=== PATIENT | female | born 1960 | race Two or more races ===

== ENCOUNTER 2016-09-29 18:57 | Inpatient (IN) | payer OTHER ==
[~2016-09-29] VITALS: Ht 162.6 cm; Wt 61.0 kg
--- NOTE | 2016-09-29 19:10 | NUR ---
PT BIB PA WITH FROM [facility] FOR FAILURE TO THRIVE. PT HAS STOPPED EATING A FEW DAYS AGO. PT APPEARS AA&O, BUT IS NOT RESPONDING TO QUESTIONS, PER EMS. PT IS ON MONITOR AND CONTINUOUS PULSE OX.
--- NOTE | 2016-09-29 19:30 | NUR ---
20G IV STARTED LAC. BLOOD CULTURES X2 AND LABS DRAWN.
[2016-09-29 19:42] LABS: ABG BASE EXCESS 6.2 mmol/L; ABG OXYGEN SATURATION 96.7 % (92.0-98.5); ABG PCO2 37.1 mmHg (35.0-45.0); ABG PH 7.517 (7.350-7.450); ABG PO2 90.3 mmHg (75.0-100.0); AaDO2 224.5 mmHg; COHb 1.2 % (0.5-1.5); MetHb 0.5 % (0.0-1.5); O2Hb 95.1 % (94.0-97.0); SITE, ABG Right Radial; VENT MODE, BG 5L N/C
--- NOTE | 2016-09-29 19:46 | NUR ---
XRAY IN PROGRESS AT THE BEDSIDE.
[2016-09-29 19:48] LABS: BASOPHILS # (AUTO) 0.5 /CMM (0.0-0.2); BASOPHILS % (AUTO) 4.6 % (0.0-2.0); EOSINOPHILS % (AUTO) 0.1 % (0.0-6.0); HEMATOCRIT 29 % (33-45); HEMOGLOBIN 10.2 g/dL (11.5-14.8); LYMPHOCYTES # (AUTO) 1.6 /CMM (0.8-4.8); MEAN CORPUSCULAR HEMOGLOBIN 32 PG (26.0-33.0); MEAN CORPUSCULAR HGB CONC 35 g/dl (31.0-36.0); MEAN CORPUSCULAR VOLUME 92 fL (82-100); MONOCYTES # (AUTO) 0.7 /CMM (0.1-1.30); MONOCYTES % (AUTO) 6.8 % (2.0-12.0); NEUTROPHILS # (AUTO) 7.2 /CMM (1.8-8.9); NEUTROPHILS % (AUTO) 72.5 % (43.0-81.0); PLATELET COUNT (AUTO) 389 /CMM (150-450); RDW COEFFICIENT OF VARIATION 16.8 (11.5-15.0); RED BLOOD CELL COUNT(AUTO) 3.18 MIL/uL (4.0-5.2)
--- NOTE | 2016-09-29 19:49 | NUR ---
PT IS GOING TO CT.
--- NOTE | 2016-09-29 20:00 | NUR ---
PT RETURNED FROM CT.
[2016-09-29 20:05] LABS: INR 0.96 (0.87-1.13); PROTHROMBIN TIME 10.2 SECS (9.5-12.7)
[2016-09-29 20:09] LABS: TROPONIN I < 0.017 ng/mL (0.00-0.056)
[2016-09-29 20:10] LABS: APPEARANCE,URINE CLEAR (CLEAR); BILIRUBIN,URINE NEGATIVE (NEGATIVE); BLOOD, URINE TRACE Ery/uL (NEGATIVE); COLOR,URINE YELLOW (YELLOW); KETONES,URINE NEGATIVE (NEGATIVE); LEUKOCYTE ESTERASE ,URINE NEGATIVE (NEGATIVE); NITRITE, URINE NEGATIVE (NEGATIVE); PH,URINE 7.5 (5.0-8.0); PROTEIN,URINE TRACE mg/dl (NEGATIVE); UGLUCOSE NEGATIVE (NEGATIVE)
[2016-09-29 20:13] LABS: ALANINE AMINOTRANSFERASE 49 U/L (12-78); ASPARTATE AMINOTRANSFERASE 302 U/L (15-37); BILIRUBIN,DIRECT 0.3 mg/dL (0.0-0.2); BILIRUBIN,TOTAL 0.7 mg/dL (0.2-1.0); CARBON DIOXIDE 31 mmol/L (21-32); CHLORIDE 94 mmol/L (98-107); GLUCOSE 101 mg/dL (74-106); POTASSIUM 4.2 mmol/L (3.5-5.1); SODIUM SERUM 132 mmol/L (136-145); TOTAL PROTEIN, SERUM 6.8 g/dL (6.4-8.2); UREA NITROGEN, BLOOD 28 mg/dL (7-18)
[2016-09-29 20:21] LABS: ALKALINE PHOSPHATASE 1788 U/L (46-116); CALCIUM, SERUM 17.5 mg/dL (8.5-10.1)
[2016-09-29] MEDS ORDERED: IV NS 0.9% 1,000 ML BAG IV ONE (20:30)
[2016-09-29] MEDS ORDERED: MEROPENEM 500 MG in IV NS 0.9% 50 ML IV ONE (20:30)
[2016-09-29] MEDS ORDERED: VANCOMYCIN 1 GM in IV D5W 250 ML IV ONE (20:30)
[2016-09-29 20:42] LABS: BACTERIA,URINE Few /HPF (None Seen); RBC,URINE 0-2 /HPF (0-2); SQUAMOUS EPITHELIAL CELL,UR Few /HPF (None Seen); WBC,URINE 0-2 /HPF (0-3)
[2016-09-29] MEDS ORDERED: IV SET PRIMARY 1 EA INFUS.SET MC ONE ×2 (20:43→21:00)
[2016-09-29] MEDS ORDERED: IV NS 0.9% 2,000 ML ONE (20:43)
--- NOTE | 2016-09-29 20:55 | NUR ---
DR FELIX ON THE PHONE WITH RAPHAEL العلي.
[2016-09-29] MEDS ORDERED: PAMIDRONATE 60 MG in IV NS 0.9% 500 ML IV ONE (21:00)
[2016-09-29] MEDS ORDERED: IV SET PRIMARY PUMP SET 1 EA INFUS.SET MC ONE (21:00)
--- NOTE | 2016-09-29 21:03 | NUR ---
ASSIGNED BED 103
--- NOTE | 2016-09-29 21:10 | NUR ---
DR. FELIX SPOKE TO FAMILY RE: PT
[2016-09-29 22:00] VITALS: BP 161/87
[2016-09-29 22:15] VITALS: BP 152/90
--- NOTE | 2016-09-29 22:30 | NUR ---
MIS MANAGER NOTES RECEIVED PT FROM ER. DX OF METASTATIC BREAST CANCER AND HYPERCALCEMIA. ON O2 VIA NC AT 4 LPM, MIRA WELL. TELE READS SR AT 88 BPM. IV SITES AT LEFT AC AND RIGHT WRIST. HOLLOWAY CATH IN PLACE. SURGICAL INCISION AT RIGHT SHOULDER AND UPPER ARM WITH RUSLAN AND DRESSING INTACT. ABNORMAL GROWTHS PRESENT AT RIGHT BREAST. FAMILY AT BEDSIDE. HOB ELEVATED. PER PT'S BROTHER REQUEST, CODE STATUS DNR/DNI. DR العلي MADE AWARE. CODE STATUS UPDATED.
[2016-09-29 23:00] VITALS: BP 141/87
[2016-09-30] VITALS (27 sets, daily range): BP systolic 121–179; BP diastolic 68–94
[2016-09-30] MEDS ORDERED: Z GUARD REMEDY 2 OZ OINT TP PRN
[2016-09-30] MEDS ORDERED: ACETAMINOPHEN 325 MG TABLET PO PRN
[2016-09-30] MEDS ORDERED: MORPHINE SULFATE INJ 2 MG/ML DISP.SYRIN IV PRN
[2016-09-30] MEDS ORDERED: ENOXAPARIN SODIUM 40 MG/0.4 ML DISP.SYRIN SQ SCH
[2016-09-30] MEDS ORDERED: ONDANSETRON HCL/PF 4 MG/2 ML VIAL IVP PRN
[2016-09-30] MEDS ORDERED: IV NS 0.9% 3,000 ML ONE (00:06)
[2016-09-30] MEDS ORDERED: IV SET PRIMARY PUMP SET 1 EA INFUS.SET MC ONE (00:06)
[2016-09-30] MEDS: IV NS 0.9% 1,000 ML IV PRN ×7 (00:28→22:59)
[2016-09-30] MEDS ORDERED: ENOXAPARIN SODIUM 40 MG/0.4 ML DISP.SYRIN SQ ONE (00:44)
[2016-09-30] MEDS ORDERED: DEXAMETHASONE SOD PHOSPHATE 4 MG/ML VIAL ONE (00:44)
[2016-09-30] MEDS ORDERED: DEXAMETHASONE SOD PHOSPHATE 10 MG/ML VIAL ONE (00:48)
[2016-09-30] MEDS: DEXAMETHASONE SOD PHOSPHATE 10 MG/ML VIAL IV SCH ×4 (00:53→17:09)
[2016-09-30 04:15] LABS: BASOPHILS % (AUTO) 0.1 % (0.0-2.0); EOSINOPHILS % (AUTO) 0.2 % (0.0-6.0); HEMATOCRIT 26 % (33-45); HEMOGLOBIN 8.8 g/dL (11.5-14.8); LYMPHOCYTES # (AUTO) 0.8 /CMM (0.8-4.8); LYMPHOCYTES % (AUTO) 8.2 % (20.0-44.0); MEAN CORPUSCULAR HEMOGLOBIN 28 PG (26.0-33.0); MEAN CORPUSCULAR HGB CONC 34 g/dl (31.0-36.0); MEAN CORPUSCULAR VOLUME 83 fL (82-100); MONOCYTES # (AUTO) 0.1 /CMM (0.1-1.30); MONOCYTES % (AUTO) 0.7 % (2.0-12.0); NEUTROPHILS # (AUTO) 9.2 /CMM (1.8-8.9); NEUTROPHILS % (AUTO) 90.8 % (43.0-81.0); PLATELET COUNT (AUTO) 307 /CMM (150-450); RDW COEFFICIENT OF VARIATION 18.1 (11.5-15.0); RED BLOOD CELL COUNT(AUTO) 3.14 MIL/uL (4.0-5.2); WHITE BLOOD COUNT (AUTO) 10.1 K/uL (4.3-11.0)
[2016-09-30 04:34] LABS: ALBUMIN 1.7 g/dL (3.4-5.0); BILIRUBIN,TOTAL 0.6 mg/dL (0.2-1.0); CREATININE 0.9 mg/dL (0.6-1.3); MAGNESIUM 1.5 mg/dL (1.8-2.4); PHOSPHORUS 3.1 mg/dL (2.5-4.9); POTASSIUM 3.3 mmol/L (3.5-5.1); TOTAL PROTEIN, SERUM 5.8 g/dL (6.4-8.2)
[2016-09-30 04:46] LABS: THYROID STIMULATING HORMONE 0.986 uIU/mL (0.358-3.74)
[2016-09-30 05:34] LABS: CALCIUM, SERUM 14.8 mg/dL (8.5-10.1)
[2016-09-30 06:15] LABS: GAMMA GLUTAMYL TRANSFERASE 2249 U/L (5-85)
[2016-09-30 06:43] LABS: BAND % (MANUAL) 8 % (0.0-5.0); EOSINOPHILS % (MANUAL) 2 % (0-4); LYMPHOCYTES % (MANUAL) 8 % (16-48); MONOCYTES % (MANUAL) 4 % (0-11.0); NEUTROPHILS % (MANUAL) 78 (42-76)
[2016-09-30] MEDS: PANTOPRAZOLE 40 MG TABLET.DR PO SCH (07:30)
--- NOTE | 2016-09-30 08:00 | NUR ---
MACHINE SPREADER NOTE: RECEIVED PATIENT IN BED. ALERT TO SELF WITH PERIODS OF CONFUSION, FAROESE SPEAKING ONLY. ON 4L 02 VIA NC NO DISTRESS NOTED SINUS TACHY ON TELE MONITOR. PATIENT NOTED WITH HOLLOWAY CATHETER DRAINING CLEAR YELLOW URINE TO GRAVITY. LAC 20G AND RW 20G PATENT AND INTACT. PATIENT S/P 4L BOLUS BY EMERGENCY PHYSICIAN RN. CURRENTLY ON MAINTENANCE FLUID OF NS AT 200ML.HR FOR CALCIUM OF 14.8. PATIENT NOTED WITH RIGHT SHOULDER RUSLAN S/P SURGERY AT [facility]. PATIENT TURNED AND REPOSITIONED AND EXTREMITIES OFFLOADED AND SKIN CARE RENDERED. PATIENT KEPT CLEAN AND DRY. SAFETY MAINTAINED. CALL LIGHT WITHIN REACH. ONGOING MONITORING. Addendum: 09/30/16 at 1652 by BYRON VILLANUEVA RN PATIENT NOTED WITH BILATERAL SOFT WRIST RESTRAINTS, ATTEMPTING TO PULL IV LINES
[2016-09-30] MEDS ORDERED: IV NS 0.9% 1,000 ML ONE (08:04)
[2016-09-30] MEDS ORDERED: CRAN3875 PO (08:53)
[2016-09-30] MEDS ORDERED: ANAS1TAB8 PO (08:53)
[2016-09-30] MEDS ORDERED: OXYC-128 PO (08:53)
[2016-09-30] MEDS ORDERED: POLY119P2 PO (08:53)
[2016-09-30] MEDS ORDERED: MAGN400O6 PO (08:53)
[2016-09-30] MEDS ORDERED: BISA10SU8 RC (08:53)
[2016-09-30] MEDS ORDERED: BISA-79 PO (08:53)
[2016-09-30] MEDS ORDERED: METO25TA6 PO (08:53)
[2016-09-30] MEDS ORDERED: AMIN30LI2 PO (08:53)
[2016-09-30] MEDS ORDERED: ACET-868 PO (08:53)
[2016-09-30] MEDS ORDERED: NA P133E RC (08:53)
[2016-09-30] MEDS ORDERED: CRAN425C PO (08:53)
[2016-09-30] MEDS ORDERED: DOCU-170 PO (08:53)
[2016-09-30] MEDS ORDERED: ONDA4TAB5 PO (08:53)
[2016-09-30] MEDS ORDERED: PAMIDRONATE 90 MG in IV NS 0.9% 500 ML IV SCH (09:00)
--- NOTE | 2016-09-30 10:00 | NUR ---
MACHINE STRIPPER CUTTER NOTE: DR. MOREIRA AT BEDSIDE RECEIVED ORDER TO OBTAIN RECORDS FROM [facility]. CALL MADE TO PATIENTS FAMILY CONTACT AND WILL OBTAIN CONSENT WHEN PATIENT FAMILY ARRIVES TO BEDSIDE THIS EVENING. PATIENT STABLE, VS NOTED WITH ELEVATED HR AND BP. MD AWARE. ONGOING MONITORING
[2016-09-30] MEDS: ANASTROZOLE 1 MG TABLET PO SCH (10:55)
[2016-09-30] MEDS: Magnesium 1GM/D5W 100ML PREMIX 100 ML IV SCH ×2 (11:35→12:49)
[2016-09-30] MEDS: POTASSIUM CL. PREMIX PERIPHER. 50 ML IV SCH ×2 (11:35→12:49)
[2016-09-30] MEDS: MORPHINE SULFATE INJ 4 MG/ML DISP.SYRIN IV PRN ×2 (12:49→20:11)
--- NOTE | 2016-09-30 14:11 | NUR ---
WOUND CARE: PT RESTING AT THIS TIME WITH FAMILY AT BEDSIDE. PT ON JENNIFER ISOFLEX LOW AIRLOSS BED. WILL SEE PT AT LATER TIME FOR SKIN ASSESSMENT. ALL SKIN PROTECTION MEASURES IN PLACE AND DISCUSSED WITH NURSING STAFF. MD IN AGREEMENT WITH PLAN OF CARE.
--- NOTE | 2016-09-30 16:00 | NUR ---
SHOW HOST OR HOSTESS NOTE: AUTHORIZATION FOR DISCLOSURE OF HEALTH RECORDS SIGNED BY PATIENT FLOWER SHOP MANAGER KRISTINA. PAPERWORK FAXED TO [facility] MEDICAL RECORDS AND AWAITING MEDICAL RECORDS RESPONSE BY [facility]. DOCUMENTS PLACED IN CHART. ONGOING MONITORING
--- NOTE | 2016-09-30 16:52 | NUR ---
ROOM SERVICE MANAGER NOTE: PATIENT KEPT CLEAN AND DRY, TURNED AND REPOSITIONED AND EXTREMITIES OFFLOADED. SKIN CARE RENDERED. SAFETY MEASURES OBSERVED. RESTRAINTS OFF WHEN FAMILY AT BEDSIDE. ONGOING MONITORING.
[2016-09-30] MEDS: BOOST PLUS FOOD-VANILLA 237 ML BOX PO SCH (17:00)
--- NOTE | 2016-09-30 17:30 | NUR ---
SHIP CARPENTER NOTE: PATIENT TRANSFERRED TO ICU ROOM 261, ACLS OBSERVED. NO DISTRESS NOTED UPON TRANSFER. FAMILY MADE AWARE. ONGOING MONITORING
--- NOTE | 2016-09-30 20:31 | NUR ---
MUSIC ADAPTER.RECEIVED THE PT REST ON THE BED.PT IS LETHARGIC.AWAKE, ALERT, FOLLOW COMMANDS.OXYGEN 4LVIANASALCANNULA. SAT 98%.BINDERY CUTTER OPERATOR SHOWING S TACH. TEMPERATURE 99.9.RT SHOULDER SURGICAL DRESSING INTACT.IV RT HAND 20G,FC PATENT.FITO SOFT WRIST RESTRAINT CHECKED AND RELEASED.NO INJURY OR REDNESS NOTED..IV RT HAND 20G.IVF NS 200ML/H. TURN AND REPOSITION Q2H.WILL CONTINUE TO MONITOR VITALS.
[2016-09-30] MEDS: ENOXAPARIN SODIUM 40 MG/0.4 ML DISP.SYRIN SQ SCH (21:29)
[2016-10-01] VITALS (44 sets, daily range): BP systolic 140–189; BP diastolic 75–107
[2016-10-01] MEDS: MORPHINE SULFATE INJ 4 MG/ML DISP.SYRIN IV PRN ×7 (01:27→20:33)
--- NOTE | 2016-10-01 03:17 | NUR ---
PRECINCT POLICE LIEUTENANT.AM CARE.ORAL CARE BED BATH GIVEN.LINEN CHANGED.REMAINING SAME OXYGEN TOLERATED WELL.SAT 98%. TAKE DOWN SORTER SHOWING S TACH.IVF NS 200ML/H.FC PATENT.HOB ELEVATED. TURN AND REPOSITION Q2H.AFEBRILE.WILL CONTINUE TO MONITOR VITALS.
[2016-10-01 04:31] LABS: HEMATOCRIT 24 % (33-45); HEMOGLOBIN 8.8 g/dL (11.5-14.8); MEAN CORPUSCULAR HEMOGLOBIN 35 PG (26.0-33.0); MEAN CORPUSCULAR HGB CONC 37 g/dl (31.0-36.0); MEAN CORPUSCULAR VOLUME 95 fL (82-100); PLATELET COUNT (AUTO) 330 /CMM (150-450); RDW COEFFICIENT OF VARIATION 18.1 (11.5-15.0); RED BLOOD CELL COUNT(AUTO) 2.54 MIL/uL (4.0-5.2); WHITE BLOOD COUNT (AUTO) 12.5 K/uL (4.3-11.0)
[2016-10-01 05:09] LABS: ALBUMIN 1.8 g/dL (3.4-5.0); BILIRUBIN,DIRECT 0.3 mg/dL (0.0-0.2); BILIRUBIN,TOTAL 0.5 mg/dL (0.2-1.0); CREATININE 0.8 mg/dL (0.6-1.3); MAGNESIUM 1.8 mg/dL (1.8-2.4); PHOSPHORUS 2.8 mg/dL (2.5-4.9); POTASSIUM 2.9 mmol/L (3.5-5.1); TOTAL PROTEIN, SERUM 5.9 g/dL (6.4-8.2)
[2016-10-01 05:30] LABS: CALCIUM, SERUM 14.4 mg/dL (8.5-10.1)
[2016-10-01] MEDS: IV NS 0.9% 1,000 ML IV PRN ×4 (05:34→23:30)
[2016-10-01] MEDS: PANTOPRAZOLE 40 MG TABLET.DR PO SCH (07:44)
[2016-10-01] MEDS: BOOST PLUS FOOD-VANILLA 237 ML BOX PO SCH ×2 (08:00→16:26)
[2016-10-01] MEDS: DEXAMETHASONE SOD PHOSPHATE 10 MG/ML VIAL IV SCH ×3 (08:16→16:24)
[2016-10-01] MEDS: AMLODIPINE BESYLATE 10 MG TABLET PO SCH (08:59)
[2016-10-01] MEDS ORDERED: NEUTRA PHOS 1 POWD.PACKET PO ONE (09:00)
[2016-10-01] MEDS: ANASTROZOLE 1 MG TABLET PO SCH ×2 (09:00→09:59)
[2016-10-01] MEDS ORDERED: IV SET PRIMARY PUMP SET 1 EA INFUS.SET MC ONE (09:03)
[2016-10-01] MEDS: Potassium Phosphate meq 11 MEQ in IV D5W 100 ML IV SCH ×2 (09:07→11:46)
--- NOTE | 2016-10-01 10:14 | NUR ---
ALLERGIST PATIENT REMAINS UNCOMFORTABLE DUE TO CONSTANT PAIN, PAIN MEDICATION GIVEN STILL HAS ON AND OFF CONFUSION STATE UNABLE TO GIVE ARIMEDEX MEDICATION SINCE THE PATIENT SPAT IT OUT ELEVATED BLOOD PRESSURE SEEN MEDICATION TO CONTROL BLOOD PRESSURE ORDERED NO OTHER UNTOWARD SYMPTOMS SEEN AT THE MOMENT
--- NOTE | 2016-10-01 11:14 | NUR ---
PATIENT CARE COORDINATOR ROSI CAMARGO SPOKE WITH THE MOTHER REGARDING COMFORT MEASURES DUE TO CONSTANT PAIN EXPERIENCED BY THE PATIENT AWAITING FAMILY'S DECISION ON COMFORT CARE
--- NOTE | 2016-10-01 11:31 | NUR ---
STAFF DEVELOPMENT EDUCATOR FAMILY DECIDED TO PUSH THROUGH WITH COMFORT CARE, PATIENT WILL BE EVALUATED BY THE HOSPICE NURSE CHARGE NURSE INFORMED TRAVEL JOURNALIST, AWAITING FOR TRAVEL JOURNALIST
--- NOTE | 2016-10-01 12:37 | NUR ---
WOUND CARE CONSULT: PT'S FAMILY AT BEDSIDE REFUSED TO HAVE PT TURNED FOR FULL SKIN ASSESSMENT. PT NOTED TO HAVE EDEMA TO LOWER EXTREMITIES AND SURGICAL DRESSINGS TO RT SHOULDER (DRY AND INTACT). PT ALSO NOTED WITH RT BREAST LESION BUT NO DRAINAGE. DEFER TO MD. PT ON JENNIFER ISOFLEX LOW AIRLOSS BED. ALL SKIN PROTECTION MEASURES IN PLACE AND DISCUSSED WITH NURSING STAFF. WILL SEE PRN. MD IN AGREEMENT WITH PLAN OF CARE.
--- NOTE | 2016-10-01 16:04 | NUR ---
spoke with family at bedside - dtr Elsa and sister in law Janelle. Family requesting for hospice eval for possible GIP. Referral faxed to [facility] [phone]. Addendum: 10/01/16 at 1604 by MADYSON MOHAN RN Amended: Links added.
--- NOTE | 2016-10-01 16:35 | NUR ---
per [place] @ [facility], patient is not candidate for GIP due to insurance. Patient has to return to SNF with hospice care. Per Elvia @ [facility] - they can accept patient back with their contracted hospice company - [facility]. Discussed with family, they elect to return to SNF under [facility] [phone], faxed referral to admission, per ivan Norton ,will have admission nurse to assess patient this afternoon. Addendum: 10/01/16 at 1938 by MADYSON MOHAN RN Amended: Links added.
[2016-10-01] MEDS: FOLIC ACID 1 MG TABLET PO SCH (17:43)
--- NOTE | 2016-10-01 18:20 | NUR ---
HONEY PRODUCER PATIENT IS FOR HOSPICE, AWAITING HOSPICE NURSE TO EVALUATE PATIENT WILL BE TRANSFER TO THE FACILITY TOMORROW ONCE EVALUATED COMFORT CARE FACILITY WAS CONTACTED BY [facility] ON DUTY MORPHINE 4 MG WAS GIVEN ROUND THE CLOCK DUE TO UNCONTROLLED PAIN DR. MOREIRA TALKED TO THE FAMILY REGARDING THE PATIENT ENDORSED TO NOD
--- NOTE | 2016-10-01 20:00 | NUR ---
RECEIVED PATIENT DROWSY AND CONFUSED.GRIMACES WHEN TURNED.SR 96.RESPIRATION EVEN AND UNLABORED.WITH O2 4L NC SPO2 100%.IVF INFUSING NS @ 200 ML/HR TO LAC.SITE INTACT. FC TO GRAVITY DRAINING WELL TO CLEAR YELLOW URINE.DNR/DNI STATUS AWAITING FOR HOSPICE EVAL IN AM.
--- NOTE | 2016-10-01 20:15 | NUR ---
PATIENT SLEEPING WITH DAUGHTER AND SOME VISITORS AND A PROCUREMENT COORDINATOR PRAYING AT PATIENT BEDSIDE.
[2016-10-01] MEDS: ENOXAPARIN SODIUM 40 MG/0.4 ML DISP.SYRIN SQ SCH (21:03)
[2016-10-01] MEDS ORDERED: hydrALAZINE HCL IV 20 MG VIAL ONE (21:24)
[2016-10-01] MEDS ORDERED: hydrALAZINE HCL IV 20 MG VIAL IV PRN (21:30)
--- NOTE | 2016-10-01 21:30 | NUR ---
PATIENT WITH ELEVATED SBP 170'S ,180'S.PAYMENT POSTER,ZAC SERRANO NOTIFIED WITH ORDERS.
[2016-10-02] VITALS (24 sets, daily range): BP systolic 133–178; BP diastolic 62–93
[2016-10-02] MEDS: MORPHINE SULFATE INJ 4 MG/ML DISP.SYRIN IV PRN ×5 (00:05→16:15)
[2016-10-02 05:09] LABS: ALBUMIN 1.8 g/dL (3.4-5.0); BILIRUBIN,TOTAL 0.7 mg/dL (0.2-1.0); CREATININE 0.9 mg/dL (0.6-1.3); POTASSIUM 3.1 mmol/L (3.5-5.1)
[2016-10-02 05:24] LABS: CALCIUM, SERUM 13.4 mg/dL (8.5-10.1)
--- NOTE | 2016-10-02 06:35 | NUR ---
PATIENT RESTING.VS STABLE.NO ACUTE DISTRESS NOTED.AM CARE DONE.PAIN MANAGED WITH MORPHINE Q 4 HRS PRN WITH RELIEF.ADEQUATE URINE OUTPUT.
[2016-10-02] MEDS: IV NS 0.9% 1,000 ML IV PRN ×2 (07:02→12:34)
[2016-10-02 08:10] LABS: IMMUNOGLOBULIN A, SERUM 299 mg/dL (87-352); IMMUNOGLOBULIN G, SERUM 1173 mg/dL (700-1600); IMMUNOGLOBULIN M, SERUM 218 mg/dL (26-217)
[2016-10-02] MEDS: BOOST PLUS FOOD-VANILLA 237 ML BOX PO SCH (08:13)
[2016-10-02] MEDS: PANTOPRAZOLE 40 MG TABLET.DR PO SCH (08:14)
[2016-10-02] MEDS: DEXAMETHASONE SOD PHOSPHATE 10 MG/ML VIAL IV SCH ×2 (08:14→12:34)
[2016-10-02] MEDS: FOLIC ACID 1 MG TABLET PO SCH (08:14)
[2016-10-02] MEDS: AMLODIPINE BESYLATE 10 MG TABLET PO SCH (08:14)
--- NOTE | 2016-10-02 08:15 | NUR ---
[place] M[place] OPERATOR; ASSESSMENT RECEIVED PT AWAKE AND ORIENTED TO SELF. PT CONFUSED, RE-ORIENTED PT TO PLACE AND TIME. PT MOANING AND C/O PAIN TO BACK ARMS AND FEET. WILL REVIEW MEDICATIONS. PT IS DNR/DNI STATUS AWAITING FOR HOSPICE CARE EVAL. HOLLOWAY CATH INTACT DRAINING TO GRAVITY CLEAR YELLOW URINE. NOTED DRESSING TO RIGHT SHOULDER INTACT. NO ACUTE DISTRESS NOTED. WILL CONTINUE TO MONITOR CLOSELY.
[2016-10-02] MEDS: ANASTROZOLE 1 MG TABLET PO SCH (08:16)
[2016-10-02] MEDS ORDERED: POTASSIUM CHLORIDE 20 MEQ TAB.PRT.SR PO ONE (10:30)
[2016-10-02 13:12] LABS: *SPE A/G RATIO 0.7 (0.7-1.7); *SPE ALBUMIN 2.3 g/dL (2.9-4.4); *SPE ALPHA-1-GLOBULIN 0.3 g/dL (0.0-0.4); *SPE ALPHA-2-GLOBULIN 0.8 g/dL (0.4-1.0); *SPE BETA GLOBULIN 0.9 g/dL (0.7-1.3); *SPE GLOBULIN, TOTAL 3.3 g/dL (2.2-3.9); *SPE M-SPIKE Not Observed g/dL (Not Observed); *SPE PROTEIN TOTAL 5.6 g/dL (6.0-8.5); *SPEGAMMA GLOBULIN 1.3 g/dL (0.4-1.8)
--- NOTE | 2016-10-02 16:59 | NUR ---
CLINICAL TRIALS MANAGER; [facility] AND SPOKE WITH NURSE SUPERVISOR RIDES MICHELINE YEN. EMT AT BEDSIDE REPORT GIVEN. IV TO LEFT AC AND RIGHT WRIST DISCONTINUED WITH CATHETER TIP INTACT. HOLLOWAY CATH REMAINS INTACT. MORPHINE 4MG IVP GIVEN AT 1615, PT C/O PAIN 9/10 NOW PAIN HAS ALVEATED TO 3/10. PTS DAUGHTER AT BEDSIDE AND AWARE OF TRANSFER.
== END 2016-10-02 17:50 | disposition hospice, home (50) | DRG 425 ==
LOC: ER 19:03 → ICUOV 21:38 → ICU 09-30 17:29
PROVIDERS: ADMIT Nurse Practitioner Acute Care; ATTEND Nurse Practitioner Acute Care
DX: E83.52 Hypercalcemia (principal); K72.00 Acute and subacute hepatic failure without coma; J96.00 Acute respiratory failure, unspecified whether with hypoxia or hypercapnia; G93.41 Metabolic encephalopathy; E43 Unspecified severe protein-calorie malnutrition; J91.0 Malignant pleural effusion; C50.919 Malignant neoplasm of unspecified site of unspecified female breast; C78.00 Secondary malignant neoplasm of unspecified lung; C78.7 Secondary malignant neoplasm of liver and intrahepatic bile duct; C79.51 Secondary malignant neoplasm of bone; I10 Essential (primary) hypertension; D63.0 Anemia in neoplastic disease; Z85.3 Personal history of malignant neoplasm of breast; J45.909 Unspecified asthma, uncomplicated; Z66 Do not resuscitate; D72.825 Bandemia; E87.6 Hypokalemia; E83.42 Hypomagnesemia; M62.50 Muscle wasting and atrophy, not elsewhere classified, unspecified site; R74.0 Nonspecific elevation of levels of transaminase and lactic acid dehydrogenase [LDH]; D63.8 Anemia in other chronic diseases classified elsewhere; K58.9 Irritable bowel syndrome, unspecified; M81.0 Age-related osteoporosis without current pathological fracture; Z91.19 Patient's noncompliance with other medical treatment and regimen; Z79.899 Other long term (current) drug therapy; Z68.23 Body mass index [BMI] 23.0-23.9, adult; E86.9 Volume depletion, unspecified; Z51.5 Encounter for palliative care
CPT/HCPCS: 36415; 36600; 70450-TC; 71010-TC; 80048-TC; 80053-TC; 80061-TC; 80076-TC; 81000-TC; 82550-TC; 82728-TC; 82746; 82784; 82962-TC; 82977-TC; 83540-TC; 83605-TC; 83615-TC; 83690-TC; 83735-TC; 83970; 84100-TC; 84155; 84165; 84439-TC; 84443-TC; 84484-TC; 85025-TC; 85730-TC; 86300; 86334; 87040-TC; 87081-TC; 87086-TC; 92611-TC; 93307-TC; A4216; A4606; J0360; J1100; J1650; J2185; J2270; J2430; J3370; J3475; J3480; J3490; J7030; J7040; J7060; Z7610